=== PATIENT | male | born 1975 ===

== ENCOUNTER 2018-05-03 11:01 | Emergency (ER) | payer OTHER ==
[~2018-05-03] VITALS: Ht 188 cm; Wt 102.1 kg
[~2018-05-03 11:01] MED LIST: COZAAR100 MG
[2018-05-03] MEDS ORDERED: ATORVASTATIN CA20 MG PO (11:17)
[2018-05-03] MEDS ORDERED: AZOR 5-40 MG T1 EACH PO (11:17)
[2018-05-03] MEDS ORDERED: TUSSI PRES-B L120 M1 PO (15:56)
[2018-05-03] MEDS ORDERED: ZITHROMAX500 MG PO (15:56)
[2018-05-03] MEDS ORDERED: TESSALON PERLE100 M1 PO (15:56)
== END 2018-05-03 15:58 | disposition home or self-care (01) ==
LOC: ER 11:01
DX: B34.9 Viral infection, unspecified (principal)